=== PATIENT | female | born 1980 | race Hispanic/Latino ===

== ENCOUNTER 2020-12-25 05:32 | Observation (INO) | payer BC ==
[2020-12-24 11:00] LABS: BASOPHILS % (AUTO) 0.8 % (0.0-5.0); EOSINOPHILS % (AUTO) 3.4 % (0.0-8.0); HEMATOCRIT 36.7 % (36-48); LYMPHOCYTES % (AUTO) 27.8 % (21.0-51.0); MEAN CORPUSCULAR HEMOGLOBIN 31.1 pg (27.0-33.0); MEAN CORPUSCULAR VOLUME 94.3 fL (79-99); MONOCYTES % (AUTO) 8.8 % (3.0-13.0); NEUTROPHILS % (AUTO) 59.1 % (40.0-77.0); PLATELET COUNT (AUTO) 242 K/uL (130-400); RED BLOOD CELL COUNT(AUTO) 3.89 MIL/uL (4.00-5.50); RED CELL DISTRIBUTION WIDTH 13.2 % (11.0-15.5); WHITE BLOOD COUNT (AUTO) 7.4 K/uL (4.8-10.8)
[2020-12-24 13:07] VITALS: BP 136/68
[~2020-12-25] VITALS: Ht 162.6 cm; Wt 70.8 kg
[2020-12-25] VITALS (23 sets, daily range): BP systolic 98–135; BP diastolic 50–92
[~2020-12-25 05:32] MED LIST: TAMOXIFEN PO
[2020-12-25] MEDS ORDERED: LACTATED RINGERS 1000ML 1,000 ML IV ONE (06:56)
[2020-12-25] MEDS ORDERED: ONDANSETRON HCL 4 MG/2 ML VIAL ONE (08:42)
[2020-12-25] MEDS ORDERED: NEOSTIGMINE 5MG/5ML SYR IV ONE (08:42)
[2020-12-25] MEDS ORDERED: PROPOFOL 10 MG/ML 20ML VIAL IV ONE (08:42)
[2020-12-25] MEDS ORDERED: LIDOCAINE PF 2% 5ML ABBOJECT ONE ×2 (08:42→10:36)
[2020-12-25] MEDS ORDERED: GLYCOPYRROLATE 1 MG/5 ML SYRINGE ONE (08:42)
[2020-12-25] MEDS ORDERED: SUCCINYLCHOLINE CHLORIDE 20 MG/ML 10 ML VIAL ONE (08:42)
[2020-12-25] MEDS ORDERED: DEXAMETHASONE SOD PHOSPHATE 10MG/ML 1ML VIAL ONE (08:42)
[2020-12-25] MEDS ORDERED: FENTANYL CITRATE PF 50 MCG/1 ML 2ML VIAL ONE ×2 (08:43→10:32)
[2020-12-25] MEDS ORDERED: ROCURONIUM 10MG/1ML SYR 10 MG/ML ML ONE (08:43)
[2020-12-25] MEDS ORDERED: MIDAZOLAM HCL 1 MG/ML 2ML VIAL ONE (08:43)
[2020-12-25] MEDS: CEFAZOLIN SODIUM 1 GM VIAL IVP SCH ×2 (08:58→20:33)
[2020-12-25] MEDS ORDERED: PROMETHAZINE HCL 25 MG/ML 1ML AMPULE IM PRN (12:00)
[2020-12-25] MEDS ORDERED: SIMETHICONE 80 MG TAB.CHEW PO PRN (12:00)
[2020-12-25] MEDS ORDERED: ONDANSETRON HCL 4 MG/2 ML VIAL IVP PRN (12:00)
[2020-12-25] MEDS ORDERED: DOCUSATE SODIUM 100 MG CAP PO PRN (12:00)
[2020-12-25] MEDS ORDERED: IBUPROFEN 600 MG TABLET PO PRN (12:00)
[2020-12-25] MEDS ORDERED: ACETAMINOPHEN-CODEINE 300/30MG TAB PO PRN (12:00)
[2020-12-25] MEDS ORDERED: BISACODYL 10 MG SUPP.RECT RC PRN (12:00)
[2020-12-25] MEDS: PROMETHAZINE HCL 25 MG/ML 1ML AMPULE IM PRN ×2 (12:20→15:21)
[2020-12-25] MEDS: MEPERIDINE-PF 75 MG/ML SYG IM PRN ×2 (12:20→15:21)
[2020-12-25] MEDS: DEXTROSE 5 %-0.45 % NACL 1,000 ML IV PRN ×2 (12:21→20:36)
[2020-12-26 03:46] VITALS: BP 107/64
[2020-12-26] MEDS: DEXTROSE 5 %-0.45 % NACL 1,000 ML IV PRN (04:30)
[2020-12-26 05:52] LABS: HEMATOCRIT 31.8 % (36-48); MEAN CORPUSCULAR HEMOGLOBIN 30.7 pg (27.0-33.0); MEAN CORPUSCULAR HGB CONC 33.3 g/dL (32.0-36.0); MEAN CORPUSCULAR VOLUME 92.2 fL (79-99); RED BLOOD CELL COUNT(AUTO) 3.45 MIL/uL (4.00-5.50); RED CELL DISTRIBUTION WIDTH 12.9 % (11.0-15.5); WHITE BLOOD COUNT (AUTO) 15.3 K/uL (4.8-10.8)
[2020-12-26] MEDS: CEFAZOLIN SODIUM 1 GM VIAL IVP SCH (07:43)
[2020-12-26 07:47] VITALS: BP 101/66
[2020-12-26 11:31] VITALS: BP 110/66
== END 2020-12-26 15:50 | disposition home or self-care (01) ==
LOC: DAH 05:32 → WSH 10:08 → UNDOADMOB 10:08 → DAHIP 10:08 → WSH 11:52
PROVIDERS: ADMIT Obstetrics & Gynecology; ATTEND Obstetrics & Gynecology
DX: D25.9 Leiomyoma of uterus, unspecified (principal); Z20.822 Contact with and (suspected) exposure to COVID-19; N92.1 Excessive and frequent menstruation with irregular cycle; K46.9 Unspecified abdominal hernia without obstruction or gangrene; N83.201 Unspecified ovarian cyst, right side; N83.202 Unspecified ovarian cyst, left side; N87.9 Dysplasia of cervix uteri, unspecified; Z85.72 Personal history of non-Hodgkin lymphomas; Z98.51 Tubal ligation status
CPT/HCPCS: 36415 ×2; 57268; 85025; 85027; 86850; 86900; 86901; 96360; 96361 ×2; 96372; A4215 ×2; A4221; A4222; A4223; A4351; A4510; A4600; A4649 ×3; A4663; A6260; C1769 ×2; C9803; G0378 ×28; J0330; J0690; J1100; J2001 ×2; J2175 ×2; J2250; J2405; J2550 ×2; J2704; J2710; J3010 ×2; J3490; J7120 ×2; U0003